=== PATIENT | female | born 1995 | race Hispanic/Latino ===

== ENCOUNTER 2018-07-08 22:24 | Emergency (ER) | payer OTHER ==
[~2018-07-08] VITALS: Ht 162.6 cm; Wt 70.5 kg
[2018-07-08 22:25] VITALS: BP 119/78
[2018-07-08 23:25] LABS: APPEARANCE, URINE HAZY (CLEAR); BACTERIA, URINE AUTO NEGATIVE (NEGATIVE); BILIRUBIN, URINE AUTO NEGATIVE (NEGATIVE); BLOOD, URINE BLOOD 2+ (NEGATIVE); COLOR, URINE YELLOW (YELLOW); GLUCOSE, URINE (UA) AUTO NEGATIVE (NEGATIVE); KETONE, URINE AUTO NEGATIVE (NEGATIVE); LEUKOCYTE ESTERASE, URINE AUTO 2+ (NEGATIVE); NITRITE, URINE AUTO NEGATIVE (NEGATIVE); PROTEIN, URINE AUTO 1+ mg/dL (NEGATIVE); RBC, URINE AUTO 48 /HPF (0-3); SPECIFIC GRAVITY URINE AUTO 1.019 (1.002-1.035); SQUAMOUS EPITHELIAL CELL UR AU 1 /HPF (0-6); UROBILINOGEN, URINE AUTO 0.2 mg/dL (0.0-2.0); WBC, URINE AUTO 79 /HPF (0-3)
[2018-07-09] MEDS ORDERED: PYRI1TAB5 PO (00:40)
[2018-07-09] MEDS ORDERED: MACR100C43 PO (00:40)
[2018-07-09] MEDS ORDERED: PHENAZOPYRIDINE 100 MG TAB PO ONE (00:45)
[2018-07-09] MEDS ORDERED: NITROFURANTOIN (MACROBID) 100 MG CAP PO ONE (00:45)
== END 2018-07-09 00:48 | disposition home or self-care (01) ==
LOC: M ED 22:25
DX: N39.0 Urinary tract infection, site not specified (principal)

== ENCOUNTER → 2018-10-11 | Outpatient (CLI) | payer OTHER ==
[~2018-10-11] MED LIST: MACR100C43 PO; PYRI1TAB5 PO
--- NOTE | 2018-10-11 13:06 | REP ---
FIRST TRIMESTER ULTRASOUND: Real-time sonographic evaluation of the gravid uterus performed utilizing transabdominal and endovaginal technique. There is a single living intrauterine gestation, estimated gestational age 5 weeks 6 days based on a crown-rump length of 3 mm. heart rate is 103 beats per minute. There is a large subchorionic hemorrhage measuring 3.8 x 2.3 x 2.9 cm. No maternal adnexal region abnormality is seen. There is no evidence of ovarian torsion, blood flow seen in each ovary with duplex Doppler evaluation. Electronically Signed by Zaire Mcintosh MD 10/13/2018 07:26 P
== END ==
LOC: M RAD 10:29
PROVIDERS: ATTEND Nurse Practitioner Family
DX: Z32.01 Encounter for pregnancy test, result positive (principal); Z3A.01 Less than 8 weeks gestation of pregnancy

== ENCOUNTER 2018-10-24 15:38 | Emergency (ER) | payer OTHER ==
[~2018-10-24] VITALS: Ht 162.6 cm; Wt 72.7 kg
[2018-10-24] MEDS ORDERED: PREN29TA4 PO (15:54)
[2018-10-24 19:11] LABS: APPEARANCE, URINE HAZY (CLEAR); BACTERIA, URINE AUTO NEGATIVE (NEGATIVE); BILIRUBIN, URINE AUTO NEGATIVE (NEGATIVE); BLOOD, URINE BLOOD NEGATIVE (NEGATIVE); COLOR, URINE YELLOW (YELLOW); GLUCOSE, URINE (UA) AUTO NEGATIVE (NEGATIVE); KETONE, URINE AUTO NEGATIVE (NEGATIVE); LEUKOCYTE ESTERASE, URINE AUTO NEGATIVE (NEGATIVE); NITRITE, URINE AUTO NEGATIVE (NEGATIVE); PROTEIN, URINE AUTO NEGATIVE (NEGATIVE); RBC, URINE AUTO 1 /HPF (0-3); SPECIFIC GRAVITY URINE AUTO 1.024 (1.002-1.035); SQUAMOUS EPITHELIAL CELL UR AU 20 /HPF (0-6); UROBILINOGEN, URINE AUTO 0.2 mg/dL (0.0-2.0); WBC, URINE AUTO 5 /HPF (0-3)
[2018-10-24 19:30] VITALS: BP 119/70
== END 2018-10-24 19:30 | disposition home or self-care (01) ==
LOC: M ED 15:38
DX: Z32.01 Encounter for pregnancy test, result positive (principal); R11.0 Nausea; Z87.891 Personal history of nicotine dependence

== ENCOUNTER 2019-06-20 09:41 | Emergency (ER) | payer OTHER ==
[~2019-06-20] VITALS: Ht 162.6 cm; Wt 71.5 kg
[~2019-06-20 09:41] MED LIST changes: +PREN29TA4 PO
[2019-06-20 10:24] LABS: BASO % 0.5 % (0.0-1.0); EOS % 0.5 % (0.0-3.0); HEMATOCRIT 38.2 % (36.0-47.0); HEMOGLOBIN 13.2 g/dl (12.0-15.5); LYMPH # 1.4 10^3/uL (1.5-5.0); LYMPH % 17.8 % (24.0-44.0); MEAN CORPUSCULAR HEMOGLOBIN 32.6 pg (27.0-33.0); MEAN CORPUSCULAR HGB CONC 34.6 g/dl (32.0-36.5); MEAN CORPUSCULAR VOLUME 94.3 fl (80.0-96.0); MONO # 0.4 10^3/uL (0.0-0.8); MONO % 5.5 % (0.0-5.0); NEUTROPHILS % 74.6 % (36.0-66.0); PLATELET COUNT, AUTOMATED 244 10^3/uL (150-450); RED BLOOD COUNT 4.05 10^6/uL (4.00-5.40); WHITE BLOOD COUNT 8.1 10^3/uL (4.0-10.0)
[2019-06-20 11:05] LABS: AMORPHOUS SEDIMENT SMALL (NEGATIVE); APPEARANCE, URINE CLOUDY (CLEAR); BACTERIA, URINE AUTO 1+ (NEGATIVE); BILIRUBIN, URINE AUTO NEGATIVE (NEGATIVE); BLOOD, URINE BLOOD 3+ (NEGATIVE); COLOR, URINE YELLOW (YELLOW); GLUCOSE, URINE (UA) AUTO NEGATIVE (NEGATIVE); KETONE, URINE AUTO NEGATIVE (NEGATIVE); LEUKOCYTE ESTERASE, URINE AUTO NEGATIVE (NEGATIVE); MUCUS, URINE SMALL (NEGATIVE); NITRITE, URINE AUTO NEGATIVE (NEGATIVE); PROTEIN, URINE AUTO 1+ mg/dL (NEGATIVE); RBC, URINE AUTO 4 /HPF (0-3); SQUAMOUS EPITHELIAL CELL UR AU 6 /HPF (0-6); UROBILINOGEN, URINE AUTO 0.2 mg/dL (0.0-2.0); WBC, URINE AUTO 4 /HPF (0-3)
[2019-06-20 11:15] LABS: BLOOD UREA NITROGEN 10 MG/DL (7-18); CALCIUM LEVEL 8.8 MG/DL (8.5-10.1); CARBON DIOXIDE LEVEL 23 MEQ/L (21-32); CHLORIDE LEVEL 106 MEQ/L (98-107); CREATININE FOR GFR 0.57 MG/DL (0.55-1.30); GLOMERULAR FILTRATION RATE > 60.0 (>60); GLUCOSE, FASTING 88 MG/DL (70-100); HCG, SERUM QUANTITATIVE 63557 MIU/ML; POTASSIUM SERUM 3.9 MEQ/L (3.5-5.1); SODIUM LEVEL 137 MEQ/L (136-145)
--- NOTE | 2019-06-20 12:56 | REP ---
REASON FOR EXAM: Vaginal bleeding. There are no pertinent priors. Transvesical imaging only was obtained. Multiple ultrasonographic images of the gravid uterus shows a single living intrauterine gestation in variable positions. Doppler interrogation of the heart shows a heart of 176 beats per minute. Based on pole measurements the estimated gestational age is 12 weeks and 1 day with an estimated date of delivery of 01/01/2020 based on that. Evaluation of the maternal adnexal spaces showed no abnormalities. No chorionic or subchorionic abnormality was noted. IMPRESSION: Early OB ultrasound as described above. Electronically Signed by Suhas Galdamez DO 06/20/2019 01:00 P
[2019-06-20 13:19] VITALS: BP 116/65
[2019-06-20 14:10] LABS: CHLAMYDIA DNA AMPLIFICATION NEGATIVE (NEGATIVE); GC DNA AMPLIFICATION NEGATIVE (NEGATIVE)
== END 2019-06-20 13:21 | disposition home or self-care (01) ==
LOC: M ED 09:41
DX: O26.851 Spotting complicating pregnancy, first trimester (principal); Z3A.12 12 weeks gestation of pregnancy

== ENCOUNTER 2019-08-23 12:21 | Emergency (ER) | payer OTHER ==
[~2019-08-23] VITALS: Ht 162.6 cm; Wt 76.6 kg
[2019-08-23 15:38] VITALS: BP 117/67
--- NOTE | 2019-08-23 15:56 | IPNPDOC ---
Text Note Date of Service The patient was seen on 08/23/19. 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 patient is a 24 yo G1 @ 21wks gestation presented to ED with concern for swollen right labia minora x 1 day. She report she feels the labia irritation for about 3 days prior to having swelling and pain. She denies any recent trauma to the area. she did shave about 1 week ago. denies abnormal vaginal discharge. denies recent vaginal infection. 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 No concern for infection at this time. If symptoms worsens or does not resolve in the next 3 days, may consider starting empirical antibiotic treatment for cellulitis (clindamycin or bactrim). patient to call clinic next week for assessment if symptoms does not improve. melba, VS,Fishbone, I+O VS, Fishbone, I+O Vital Signs Date Time Temp Pulse Resp B/P (MAP) Pulse Ox O2 Delivery O2 Flow Rate FiO2 08/23/19 15:38 62 18 117/67 (84) 98 Room Air 08/23/19 12:22 99.0 MARKO AGUDELO DO August 23, 2019 15:55
== END 2019-08-23 15:41 | disposition home or self-care (01) ==
LOC: M ED 12:21
DX: O26.892 Other specified pregnancy related conditions, second trimester (principal); N89.8 Other specified noninflammatory disorders of vagina; Z3A.21 21 weeks gestation of pregnancy

== ENCOUNTER 2019-12-28 01:35 | Outpatient (CLI) | payer OTHER ==
[~2019-12-28] VITALS: Ht 162.6 cm; Wt 84.6 kg
[2019-12-28 02:06] VITALS: BP 120/75
== END 2019-12-28 03:10 | disposition home or self-care (01) ==
LOC: M LDO 01:35
DX: O47.1 False labor at or after 37 completed weeks of gestation (principal); Z3A.39 39 weeks gestation of pregnancy
CPT/HCPCS: 59025; G0378; G0463

== ENCOUNTER 2020-01-02 18:10 | Outpatient (CLI) | payer OTHER ==
[~2020-01-02] VITALS: Ht 162.6 cm; Wt 86.9 kg
[2020-01-02 18:28] VITALS: BP 117/78
[2020-01-02 19:12] VITALS: BP 122/72
[2020-01-02 20:01] VITALS: BP 113/61
[2020-01-02 20:13] VITALS: BP 109/59
--- NOTE | 2020-01-04 17:03 | HPE ---
DATE OF ADMISSION: 01/02/2020 A 24-year-old 2, para 0, last menstrual period (LMP) 03/29/2019, estimated date of confinement (EDC) 01/03/2020, seen at 39 and 6 weeks of gestation with a history of contractions 3-8 minutes apart. No vaginal bleeding. No loss of fluid. Risk factor is she is GBS positive. PAST HISTORY: In 2019, spontaneous , 8 weeks. LABORATORY DATA: B positive, HIV negative, hepatitis negative, RPR negative, rubella immune, Varicella immune. Pap LGSIL. Urine negative. Gonorrhea and chlamydia are negative. One-hour glucose was 89. GBS is positive. Blood pressure 113/61, respirations 16, pulse 57, temperature 97.6. Urine is 1010, pH 7 and negative. On examination, no distress. She does have contractions. Category 1 strip. Moderate variability with accelerations. No decelerations noted. Symphysis fundus height is 40, vertex, occiput anterior (OA), -3, posterior, 1 cm. No vaginal loss or bleeding. Thick and high. Our plan is counseling regarding drinking and eating, which she has not done all day. She had her first drinking episode when she was here. Reviewed premature rupture of membranes, bleeding, contractions 3-5 minutes apart, moderate, and breathing through them. Patient has an appointment with Michelet CARPENTER 01/06/2020. encouraged to keep that. Otherwise return if anything changes. Patient was discharged undelivered. Expressed understanding of care. MTDD
== END 2020-01-02 20:30 | disposition home or self-care (01) ==
LOC: M LDO 18:10
PROVIDERS: ATTEND Obstetrics & Gynecology
DX: O26.893 Other specified pregnancy related conditions, third trimester (principal); Z3A.39 39 weeks gestation of pregnancy
CPT/HCPCS: 59025; G0378; G0463

== ENCOUNTER 2020-01-04 01:51 | Inpatient (IN) | payer OTHER ==
[~2020-01-04] VITALS: Ht 162.6 cm; Wt 84.6 kg
[2020-01-04] VITALS (15 sets, daily range): BP systolic 111–135; BP diastolic 56–85
[2020-01-04 04:03] LABS: HEMATOCRIT 41.8 % (36.0-47.0); HEMOGLOBIN 14.2 g/dl (12.0-15.5); MEAN CORPUSCULAR HEMOGLOBIN 32.3 pg (27.0-33.0); PLATELET COUNT, AUTOMATED 224 10^3/uL (150-450); WHITE BLOOD COUNT 13.6 10^3/uL (4.0-10.0)
[2020-01-04] MEDS ORDERED: LR 1,000 ML IV SCH ×2 (04:38→07:00)
[2020-01-04] MEDS ORDERED: PENICILLIN G POTASSIUM IV 5 MU in D5W MINI-BAG PLUS 100 ML IV STA (04:38)
[2020-01-04] MEDS ORDERED: PENICILLIN G POTASSIUM 5 MU VIAL As Ordered ONE (04:40)
[2020-01-04] MEDS ORDERED: ceFAZolin SOD 2 GM in IV 1 EA IV ONE (04:45)
[2020-01-04] MEDS ORDERED: BUPIVACAINE HCL 0.25% 10ML VIAL SC ONE (04:45)
[2020-01-04] MEDS ORDERED: ACETAMINOPHEN 650 MG SUPP PR SCH (04:45)
[2020-01-04] MEDS ORDERED: BICITRA 30ML SOLN UDC PO ONE (04:45)
[2020-01-04] MEDS ORDERED: LACTATED RINGER'S 1000 ML IV ONE (04:45)
[2020-01-04] MEDS ORDERED: MORPHINE PRES-FREE INJ 10 MG/10 ML VIAL (J2274) As Ordered ONE (05:10)
[2020-01-04] MEDS ORDERED: ePHEDrine SULFATE 25 MG/5 ML(5MG/ML) SYRINGE As Ordered ONE (05:10)
[2020-01-04] MEDS ORDERED: PHENYLephrine HCL 500 MCG/5 ML (100MCG/ML) SYRINGE (J2370) As Ordered ONE (05:10)
[2020-01-04] MEDS ORDERED: OXYTOCIN 30 UNITS IN 0.9% NaCl 500ML IV BAG (J2590) As Ordered ONE ×2 (05:11→06:26)
[2020-01-04] MEDS ORDERED: NALBUPHINE HCL 10 MG/ML AMP (J2300) IV PRN (05:25)
[2020-01-04] MEDS ORDERED: diphenhydrAMINE 50MG/ML VIAL (J1200) IV PRN (05:25)
[2020-01-04] MEDS ORDERED: NALOXONE INJ 0.4MG/1ML VIAL (J2310 PER 1MG) IV PRN ×2 (05:25)
[2020-01-04] MEDS ORDERED: ONDANSETRON 4MG/2ML VIAL IV PRN ×2 (05:25→07:00)
[2020-01-04] MEDS ORDERED: METOCLOPRAMIDE INJ 10MG/2ML VIAL (J2765 PER 1) IV PRN ×2 (05:25→07:00)
--- NOTE | 2020-01-04 05:27 | HPEPDOC ---
Obstetrical History & Physical General Date of Admission Jan 04, 2020 at 02:54 Past Medical History Allergies Coded Allergies: No Known Allergies (Unverified , 07/08/18) Medications Scheduled Prenat 115/Iron Fum/Folic/Dss ( 19 Tablet) 1 Each Tablet, 1 TAB PO DAILY Physical Examination Physical Examination GENERAL: Alert and oriented times three. BREAST: . ABDOMEN: Gravid and non-tender to touch. FETUS: Is vertex (VTX) by sterile vaginal examination (SVE), fetus is vertex (VTX) by Karthikeyan. HEART RATE: Regular rate and rhythm. LUNGS: Clear to auscultation (CTA). EXTREMITIES: No edema. No clonus. Deep tendon reflexes (DTRs) + . Other physical findings CERVIX 2 CM HIGH THICK -3 STATION Vital Signs/I&O Vital Signs Date Time Temp Pulse Resp B/P (MAP) Pulse Ox O2 Delivery O2 Flow Rate FiO2 01/04/20 04:08 65 123/74 (90) 01/04/20 02:08 97.1 Laboratory Data 24H LABS Laboratory Tests 2 01/04/20 02:58: Serology Scanned Report Hepatitis B Testing 01/04/20 03:21: Nucleated Red Blood Cells % (auto) 0.0 CBC/BMP Laboratory Tests 01/04/20 03:21 Pertinent Laboratoy Data Blood Type: B+ HIV: Negative Hepatitis B: Negative Rapid Plasma Reagin: Nonreactive Rubella: Immune Varicella: Immune Chlamydia/Gonorrhea: Negative Group B Streptococcus: Positive Cystic Fibrosis: Negative Anatomy Ultrasound Normal Anatomy: Yes Steroid Therapy Steroid Therapy: No Vaginal Examination Dilation: 2cm Effacement: 40% Station: -3 Cervical Consistency: Firm Cervical Position: Posterior Presentation: Cephalic presentation Assessment Variability: Moderate Accelerations: Present Decelerations: Late Tocometer Contractions: Yes Frequency: regular Duration: less than 60 seconds Strength: palpated as strong Assessment/Plan Assessment 24year-old (G)[2 para (P)0 at[40] weeks 1 day by ultrasound. Presents to Labor and Delivery (L&D) contractions Plan Admit and orient. [employer] Group B Streptococcus (GBS) positive Labs and intravenous (IV) per unit prot Lactated Ringers (LR): Bolus 1000 mL, then at 125 mL/hr C-S as appropriate. Raymond Awan MD Jan 04, 2020 05:15
--- NOTE | 2020-01-04 05:31 | HPEPDOC ---
Raymond Awan MD Jan 04, 2020 05:12
[2020-01-04] MEDS ORDERED: OXYTOCIN INJ 10 UNITS/ML VIAL (J2590) As Ordered ONE (05:43)
[2020-01-04] MEDS ORDERED: KETOROLAC 60MG 2ML VIAL As Ordered ONE (05:44)
[2020-01-04] MEDS ORDERED: ONDANSETRON 4MG/2ML VIAL As Ordered ONE (05:44)
[2020-01-04 05:59] LABS: CORD GAS ABE V -5.7; CORD GAS O2 SAT V 78.8 %; CORD GAS PCO2 V 44.8 mmHg; CORD GAS PH V 7.288 UNITS; CORD GAS PO2 V 37.7 mmHg; CORD GAS SBC V 19.4 MEQ/L; CORD GAS TCO2 V 22.3 MEQ/L
[2020-01-04 06:01] LABS: CORD GAS ABE A -6.2; CORD GAS HCO3 A 25.2 MEQ/L; CORD GAS O2 SAT A 19.9 %; CORD GAS PCO2 A 75.5 mmHg; CORD GAS PH A 7.141 UNITS; CORD GAS PO2 A 14.6 mmHg; CORD GAS SBC A 17.5 MEQ/L; CORD GAS TCO2 A 27.5 MEQ/L
[2020-01-04] MEDS ORDERED: OXYTOCIN DRIP 30 UNITS in IV 1 EA IV ONE (06:30)
[2020-01-04] MEDS ORDERED: MOM 30ML SUSPENSION UDC PO PRN (06:30)
[2020-01-04] MEDS ORDERED: ANUSOL HC CREAM 30GM TOP PRN (06:30)
[2020-01-04] MEDS ORDERED: ACETAMINOPHEN TAB 650MG DOSE (2X325MG) PO PRN (06:30)
[2020-01-04] MEDS ORDERED: RHOGAM 300 MCG (1500 IU) INJ (J2790) IM SCH (06:30)
[2020-01-04] MEDS ORDERED: OXYTOCIN INJ 10 UNITS/ML VIAL (J2590) IV ONE (06:30)
[2020-01-04] MEDS ORDERED: MEASLES,MUMPS,RUBELLA VACCINE INJ (MMR-II) (90707) SC SCH (06:30)
[2020-01-04] MEDS ORDERED: KETOROLAC 30 MG/ML 1ML VIAL IV PRN (07:00)
[2020-01-04] MEDS ORDERED: fentaNYL 100 MCG/2 ML INJECTION (J3010) IV PRN (07:00)
[2020-01-04] MEDS ORDERED: fentaNYL 100 MCG/2 ML INJECTION (J3010) As Ordered ONE (07:28)
[2020-01-04] MEDS ORDERED: PENICILLIN G POTASSIUM IV 2.5 MU in IV 1 EA IV SCH (08:45)
[2020-01-04] MEDS: PRENATAL VITAMINS CHEWABLE TABLET PO SCH (09:00)
[2020-01-04] MEDS: KETOROLAC 30 MG/ML 1ML VIAL IV SCH ×2 (12:02→17:31)
[2020-01-04] MEDS: ACETAMINOPHEN 500 MG TAB PO PRN (22:31)
[2020-01-05] MEDS: KETOROLAC 30 MG/ML 1ML VIAL IV SCH (00:01)
[2020-01-05 02:18] VITALS: BP 114/62
[2020-01-05 06:12] VITALS: BP 117/72
[2020-01-05 06:12] LABS: HEMATOCRIT 34.2 % (36.0-47.0); MEAN CORPUSCULAR HEMOGLOBIN 32.2 pg (27.0-33.0); MEAN CORPUSCULAR HGB CONC 32.5 g/dl (32.0-36.5); MEAN CORPUSCULAR VOLUME 99.1 fl (80.0-96.0); PLATELET COUNT, AUTOMATED 164 10^3/uL (150-450); RED BLOOD COUNT 3.45 10^6/uL (4.00-5.40); WHITE BLOOD COUNT 11.1 10^3/uL (4.0-10.0)
[2020-01-05 06:24] LABS: HEMOGLOBIN 11.1 g/dl (12.0-15.5)
[2020-01-05] MEDS: PRENATAL VITAMINS CHEWABLE TABLET PO SCH (07:33)
[2020-01-05] MEDS: ACETAMINOPHEN 500 MG TAB PO PRN (07:33)
[2020-01-05 10:00] VITALS: BP 111/62
--- NOTE | 2020-01-05 11:17 | IPNPDOC ---
Progress Note Date of Service: Jan 05, 2020 Day#: 1 Progress Note SUBJECT: Lu is a 24yo PPD#1 s/p PLTCS for NRFHR. She reports pain controlled on oral pain meds. Reports her lochia is decreasing. She is but having to supplement with formula. OBJECTIVE: VITAL SIGNS: Within normal limits, afebrile. Alert and oriented times three. RESP: No exaggerated respiratory effort appreciated CARDS: well-perfused Abdomen: Fundus firm at U-2. Soft, NTTP. EXTREM: no edema ASSESSMENT: Lu is a 22yo PPD#1 s/p PLTCS for NRFHR doing well. Vitals within normal limits, afebrile, hemodynamically stable with no evidence of infection. PLAN: 1. Discharge to home tomorrow. 2. Continue current pain mgmt 3. Encourage breast feeding with consult PRN. 4. Encourage regular diet as tolerated 5. Encourage ambulation. 6. Discussed return precautions at length. VS, I&O, 24H, Fishbone Vital Signs/I&O Vital Signs Date Time Temp Pulse Resp B/P (MAP) Pulse Ox O2 Delivery O2 Flow Rate FiO2 01/05/20 10:00 98.6 62 18 111/62 (78) 99 01/05/20 06:12 Room Air I&O- Last 24 Hours up to 6 AM 01/05/20 06:00 Intake Total 2826 ml Output Total 3175 ml Balance -349 ml Laboratory Data 24H LABS Laboratory Tests 2 01/05/20 05:33: Nucleated Red Blood Cells % (auto) 0.0 CBC/BMP Laboratory Tests 01/05/20 05:33 YANNA SAUCEDO DO Jan 05, 2020 11:17
[2020-01-05] MEDS: IBUPROFEN 800 MG TAB PO PRN ×2 (11:27→20:39)
[2020-01-05 13:59] VITALS: BP 122/73
[2020-01-05] MEDS: NORCO, ANEXSIA 5/325MG TABLET (HYDROcodone/ACETAMINOPHEN) PO PRN ×2 (14:43→23:08)
[2020-01-05 18:00] VITALS: BP 123/79
[2020-01-05 22:12] VITALS: BP 138/74
[2020-01-06 03:04] VITALS: BP 130/77
[2020-01-06 05:59] VITALS: BP 131/70
--- NOTE | 2020-01-06 06:42 | IPNPDOC ---
Progress Note Date of Service: Jan 06, 2020 Day#: 2 Progress Note SUBJECT: Lu is a 24yo PPD#2 s/p PLTCS for NRFHR. She reports pain controlled on oral pain meds. Reports her lochia is decreasing. She is but having to supplement with formula. OBJECTIVE: VITAL SIGNS: Within normal limits, afebrile. Alert and oriented times three. RESP: No exaggerated respiratory effort appreciated CARDS: well-perfused Abdomen: Fundus firm at U-2. Soft, NTTP. Incision: dressing in place c/d/i EXTREM: no edema ASSESSMENT: Lu is a 22yo PPD#2 s/p PLTCS for NRFHR doing well. Vitals within normal limits, afebrile, hemodynamically stable with no evidence of infection. PLAN: 1. Discharge to home today. 2. Continue current pain mgmt 3. Encourage breast feeding with consult PRN. 4. Encourage regular diet as tolerated 5. Encourage ambulation. 6. Discussed return precautions at length. VS, I&O, 24H, Fishbone Vital Signs/I&O Vital Signs Date Time Temp Pulse Resp B/P (MAP) Pulse Ox O2 Delivery O2 Flow Rate FiO2 01/05/20 23:08 18 01/05/20 22:12 97.9 75 138/74 (95) 97 01/05/20 13:59 Room Air Laboratory Data 24H LABS Laboratory Tests 2 01/05/20 05:33: Nucleated Red Blood Cells % (auto) 0.0 CBC/BMP Laboratory Tests 01/05/20 05:33 YANNA SAUCEDO DO Jan 06, 2020 01:19
[2020-01-06] MEDS: PRENATAL VITAMINS CHEWABLE TABLET PO SCH (07:14)
[2020-01-06] MEDS: NORCO, ANEXSIA 5/325MG TABLET (HYDROcodone/ACETAMINOPHEN) PO PRN ×2 (07:14→19:21)
--- NOTE | 2020-01-06 08:47 | RO ---
DATE OF OPERATION: 01/04/2020 INDICATIONS: This lady is a 24-year-old 2, para 0, admitted with spontaneous labor at 41 weeks gestation. She had a non-reassuring heart strip and was remote from delivery. PREOPERATIVE DIAGNOSIS: Primary section. POSTOPERATIVE DIAGNOSIS: Primary section. ANESTHESIA: Spinal plus local anesthetic for intraperitoneal procedure. ESTIMATED BLOOD LOSS: 200 mL. SURGEON: Dr. Raymond Awan FISHER TRAWL LINE: Dr. Phillip Teixeira for extraction, retraction, and visualization without which the procedure could not be completed. PROCEDURE IN DETAIL: After adequate anesthesia, prep and drape, in the supine position, Sandoval catheter in the bladder draining clear urine, acetaminophen suppository 1300 mg per rectum, appropriate antibiotics preoperatively, a Pfannenstiel incision was made two finger breadths above the symphysis pubis passing through abdominal layers, securing hemostasis. Opening the peritoneal cavity, a Mobius was placed. The bladder was reflected well. An anterior low transverse incision was made into the uterus. There was no amniotic fluid present. A baby was a synclitic non-reassuring heart. We delivered a live female infant weighing 6 pounds 11 ounces, 3040 grams, Apgars 8/9 at one and five minutes respectively. Arterial pH 7.14, base excess -6.2, venous pH 7.28, base excess -5.7. Placenta was manually removed. It appeared to be similar to multiple grape areas and not a complete placenta with normal cotyledons. We wished to send the placenta to pathology, but the patient declined wanting to take the placenta home. Three vessels in the cord. Membranes and tissues intact. We swept out the uterus with no evidence of tissue or membranes remaining. The uterus contracted well under Pitocin. The lower segment was oversewn in the usual fashion in two layers and reperitonealization was performed. With instrument and pad counts correct, the Mobius was removed. The ovaries and tubes appeared to be normal. The abdomen was then closed with running sutures for the peritoneum, same for the fascia, interrupted for SQ, Dexon to the skin, Marcaine 0.25% 10 mL and a Mepore dressing was placed. The patient and the baby tolerated the procedure well. GAIL
[2020-01-06] MEDS ORDERED: INFLUENZA QUADRIVALENT PF VACCINE 0.5ML SYRINGE IM ONE (09:00)
[2020-01-06] MEDS: DOCUSATE SODIUM 100 MG CAP PO PRN ×2 (09:46→19:20)
[2020-01-06] MEDS: IBUPROFEN 800 MG TAB PO PRN ×2 (09:46→17:24)
[2020-01-06 18:04] VITALS: BP 122/74
[2020-01-07] MEDS: IBUPROFEN 800 MG TAB PO PRN (02:51)
[2020-01-07 05:37] VITALS: BP 120/70
[2020-01-07] MEDS: PRENATAL VITAMINS CHEWABLE TABLET PO SCH (08:53)
[2020-01-07] MEDS: NORCO, ANEXSIA 5/325MG TABLET (HYDROcodone/ACETAMINOPHEN) PO PRN (08:53)
--- NOTE | 2020-01-07 08:57 | OBDS ---
[facility] Obstetrical Discharge Sum. Obstetrical Discharge Summary Date: Jan 07, 2020 Time: 08:50 : 2 Term: 1 Pre-term: 0 Abortions: 1 Livin VDRL: Non-Reactive Rh: Positive Rubella: Immune Delivery Primary section for NRFHTs Sex: Female Anesthesia: Regional Anesthesia A/P, Post Course List any complications Admission diagnosis: Spontaneous labor. Discharge diagnosis: s/p primary section Condition at Discharge: Patient is feeling well without any concerns Discharge Instructions: Home/other Activity: Encourage ambulation Diet: Regular Medications: Continue pain regimen as prescribed Follow-up: 1 week for incision check Other: Encouraged breast feeding, lifting and weight restrictions to 15# JOCY GIL CNM Jan 07, 2020 08:56
== END 2020-01-07 12:54 | disposition home or self-care (01) | DRG 773 ==
LOC: M LDO 01:51 → M LDI 02:54 → M OBS 08:16
PROVIDERS: ADMIT Obstetrics & Gynecology; ATTEND Obstetrics & Gynecology
PROC: 10D00Z1 Extraction of Products of Conception, Low, Open Approach (ICD-10-PCS; principal; 2020-01-04 05:09)
DX: O48.0 Post-term pregnancy (principal); Z3A.40 40 weeks gestation of pregnancy; O76 Abnormality in fetal heart rate and rhythm complicating labor and delivery; O99.824 Streptococcus B carrier state complicating childbirth; Z37.0 Single live birth